=== PATIENT | male | born 1985 | race Caucasian/White ===

== ENCOUNTER 2019-07-14 17:13 | Emergency (ER) | payer SELFPAY ==
[2019-07-14 17:27] VITALS: TEMP 98.3
[2019-07-14] MEDS ORDERED: SODIUM CHLORIDE 0.9% 1000ML 1,000 ML IVS ONE (17:41)
[2019-07-14] MEDS ORDERED: ACETAMINOPHEN 500 MG TAB PO ONE (17:41)
[2019-07-14] MEDS ORDERED: DICYCLOMINE HCL 20 MG TAB PO ONE (17:41)
[2019-07-14] MEDS ORDERED: KETOROLAC TROMETHAMINE INJ 30 MG/ML VIAL IV ONE (17:41)
--- NOTE | 2019-07-14 17:45 | ED.PDOC ---
History of Present Illness - General Chief Complaint: Abdominal Pain Stated Complaint: Diarrhea, generalized aching Time Seen by Provider: 07/14/19 17:37 - History of Present Illness Initial Comments: Pt is a 34 y.o. obese M who presents c/o diarrhea, chills, and myalgias. Report having multiple episodes of loose, watery stools for the past two days. No diarrhea. No known sick contacts. No documented fevers. Has not tried any OTC remedies. Symptoms associated with intermittent abdominal cramping without pain. Review of Systems - Review of Systems Constitutional: States: chills. Denies: fever EENTM: States: no symptoms reported Respiratory: States: no symptoms reported Cardiology: States: no symptoms reported Gastrointestinal/Abdominal: States: diarrhea, nausea Genitourinary: States: no symptoms reported Musculoskeletal: States: no symptoms reported Skin: States: no symptoms reported Neurological: States: no symptoms reported Endocrine: States: no symptoms reported Hematologic/Lymphatic: States: no symptoms reported All other Systems: Reviewed and Negative Past Medical History (General) - Patient Medical History Hx Stroke: No Hx Congestive Heart Failure: No Hx Diabetes: No Hx MRSA: No - Vaccination History Hx Tetanus, Diphtheria Vaccination: Yes Hx Influenza Vaccination: No Hx Pneumococcal Vaccination: No - Social History Hx Tobacco Use: Yes Hx Alcohol Use: No Family Medical History - Family History Father Family History: No Known Living Status: Still Living Physical Exam - Physical Exam General Appearance: Alert, Comfortable, Obese Eyes, Ears, Nose, Throat Exam: normal ENT inspection, TMs normal Neck: full range of motion, supple Respiratory: lungs clear, normal breath sounds Cardiovascular/Chest: normal peripheral pulses, regular rate, rhythm Peripheral Pulses: No deficit Gastrointestinal/Abdominal: non tender, soft Extremity: normal range of motion, non-tender Neurologic: no motor/sensory deficits, alert, normal mood/affect Skin Exam: normal color, warm/dry Lymphatic: no adenopathy Progress - Progress Progress: 07/14/19 17:45 MDM well appearing patient here with myalgias, nausea and diarrhea. Likley viral etiology. Plan to evaluate for dehydration, treat symptoms, reassess. Diff dx: viral gastroenteritis, electrolyte abnormalities - Results/Orders Results/Orders: 07/14/19 17:41 Sodium Chloride 0.9% 1000ML [Ns 1000 ml] 1,000 ml IVS ONCE Laboratory Results - last 24 hr 07/14/19 07/14/19 17:45 17:45 WBC 8.1 RBC 4.99 Hgb 15.4 Hct 44.1 MCV 88.5 MCH 30.9 MCHC 34.9 RDW 12.4 Plt Count 267 MPV 8.6 Absolute Neuts (auto) 4.20 Absolute Lymphs (auto) 3.00 Absolute Monos (auto) 0.60 Absolute Eos (auto) 0.20 Absolute Basos (auto) 0.00 Neutrophils % 51.7 Lymphocytes % 37.4 Monocytes % 7.3 Eosinophils % 3.0 Basophils % 0.6 Sodium 139 Potassium 4.0 Chloride 103 Carbon Dioxide 26 Anion Gap 14.0 BUN 13 Creatinine 0.80 BUN/Creatinine Ratio 16.3 Random Glucose 119 H Serum Osmolality 278.8 Calcium 9.3 Total Bilirubin 0.3 AST 19 ALT 31 Alkaline Phosphatase 67 Serum Total Protein 6.5 Albumin 3.6 Globulin 2.9 Albumin/Globulin Ratio 1.2 Departure - Departure Clinical Impression: Enteritis Diarrhea Qualifiers: Diarrhea type: presumed infectious Qualified Code(s): R19.7 - Diarrhea, unspecified Disposition: Discharge to Home or Self Care Condition: Good Departure Forms: ED Discharge - Pt. Copy, Patient Portal Self Enrollment Instructions: Diarrhea and Traveler's Diarrhea, Adult (DC) Prescriptions: Loperamide Cap [Imodium Cap] 2 mg PO Q4HR PRN #20 cap PRN Reason: Diarrhea Home Medications: Ambulatory Orders Loperamide Cap [Imodium Cap] 2 mg PO Q4HR PRN #20 cap 07/14/19
[2019-07-14 18:17] VITALS: BP 125/61; O2SAT 97
== END 2019-07-14 18:29 | disposition home or self-care (01) ==
LOC: ER 17:13
DX: K52.9 Noninfective gastroenteritis and colitis, unspecified (principal)
CPT/HCPCS: 80053; 85025; J1885; J7030